=== PATIENT | male | born 2000 | race Caucasian/White ===

== ENCOUNTER 2020-05-07 16:01 | Emergency (ER) | payer BC, OTHER ==
[~2020-05-07] VITALS: Ht 182.8 cm; Wt 95.3 kg
--- NOTE | 2020-05-07 17:00 | ED Cough/URI ---
General Stated Complaint: HEADACHE,BODYACHES,FEVER,VOMITING Source: patient Exam Limitations: no limitations History of Present Illness Date Seen by Provider: May 07, 2020 Time Seen by Provider: 16:45 Initial Comments Here with report of fever, body aches and had vomiting last night. 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 He has no symptoms now as well. No vomiting today. He has been able to take fluids. Does arrive with the fever but not short of breath. His main concern is related to COVID-19 and the requirement for testing. Timing/Duration: yesterday Severity/Quality: no cough Modifying Factors: Improves With Rest Associated Symptoms: fever/chills, headache, muscle aches Allergies and Home Medications Allergies Coded Allergies: No Known Drug Allergies (Unverified , 09/04/14) Patient Home Medication List Home Medication List Reviewed: Yes Review of Systems Review of Systems Constitutional: see HPI, chills, fever EENTM: nose congestion; No throat pain Respiratory: no symptoms reported Cardiovascular: no symptoms reported Gastrointestinal: nausea, vomiting Genitourinary: no symptoms reported Musculoskeletal: joint pain, muscle pain Skin: no symptoms reported Psychiatric/Neurological: Headache; Denies Weakness Past Bwzgsel-Mmzwpi-Ymesvx Hx Past Med/Social Hx: Reviewed Nursing Past Med/Soc Hx Patient Social History Alcohol Use: Denies Use Recreational Drug Use: No Smoking Status: Never a Smoker Immunizations Up To Date Date of Influenza Vaccine: Jun 04, 2014 Past Medical History Surgeries: Yes Respiratory: No Cardiac: No Neurological: No Reproductive Disorders: No Gastrointestinal: No Musculoskeletal: No Endocrine: No Family Medical History Reviewed Nursing Family Hx Physical Exam Vital Signs - First Documented 05/07/20 16:38 Temp 38.0 Pulse 105 Resp 20 B/P (MAP) 134/82 (99) Pulse Ox 97 O2 Delivery Room Air Capillary Refill : Height: 5'9" Weight: 135lbs. oz. 61.713087tq; BMI Method:Stated General Appearance: WD/WN, no apparent distress Neck: full range of motion, supple Respiratory: lungs clear, normal breath sounds Cardiovascular: no murmur, tachycardia Gastrointestinal: non tender, soft Neurologic/Psychiatric: alert, oriented x 3 Skin: normal color, warm/dry Progress/Results/Core Measures Suspected Sepsis SIRS Temperature: Pulse: Respiratory Rate: Blood Pressure / Mean: Results/Orders Lab Results Laboratory Tests Test 05/07/20 16:47 Range/Units Coronavirus 2019 ([facility]) Positive H Negative My Orders Orders - SULLY UREÑA MD Covid 19 Inhouse Test (05/07/20 16:52) Vital Signs/I&O 05/07/20 16:38 Temp 38.0 Pulse 105 Resp 20 B/P (MAP) 134/82 (99) Pulse Ox 97 O2 Delivery Room Air Capillary Refill : Progress Note : Progress Note Seen and evaluated. Fever noted. Patient declined Tylenol or ibuprofen and states he'll do that at home. 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 Confirmatory testing will be sent if needed. Patient has findings c onsistent with COVID-[id number]: Patient is COVID positive. He was informed. DC home with return precautions. Patient verbalized understanding of instructions and agreement with plan. Departure Impression Primary Impression: COVID-19 virus infection Disposition: HOME, SELF-CARE Condition: Against Medical Advice Departure-Patient Inst. Decision time for Depature: 17:00 Referrals: NO,LOCAL PHYSICIAN (PCP/Family) Primary Care Physician Patient Instructions: Coronavirus Disease 2019 (COVID-19) (DC) Add. Discharge Instructions: Drink plenty of fluids and get plenty of rest. You will need to remain on quarantine until test results are noted. If they are negative, you will need to be isolated for 3 days after symptoms resolve. If they are positive, the health department will call you and direct quarantine timeframe. You may take ibuprofen 600 mg every 8 hours as needed for fever or pain. You may take Tylenol/acetaminophen 1000 mg every 8 hours as needed for fever.. Return for worse pain, fever, vomiting, weakness, breathing problems or other concerns as needed. SULLY UREÑA MD May 07, 2020 17:00
[2020-05-07 17:55] VITALS: BP 126/80
== END 2020-05-07 17:55 | disposition home or self-care (01) ==
LOC: EDUNIT# 16:01 → ER 16:02
DX: U07.1 COVID-19 (principal)
CPT/HCPCS: 99282; U0002; 87635

== ENCOUNTER 2020-05-10 00:21 | Emergency (ER) | payer BC ==
[~2020-05-10] VITALS: Ht 182.8 cm; Wt 97.5 kg
--- NOTE | 2020-05-10 01:19 | ED Respiratory ---
General Chief Complaint: Respiratory Problems Stated Complaint: COVID+,PAINFUL TO BREATH Source: patient History of Present Illness Date Seen by Provider: May 10, 2020 Time Seen by Provider: 01:13 Initial Comments PT ARRIVES VIA POV FROM HOME PT TESTED POSITIVE FOR COVID-19--SEEN HERE 05/07/20, HE HAD FEVER OF 101.2 THAT DAY, AND A CO-WORKER AT [facility] TESTED POSITIVE FOR COVID-19 NO LONGER RUNNING FEVER-ONLY HAD FEVER THE ONE DAY HAD NAUSEA/VOMITING ON THE FIRST DAY--THIS HAS RESOLVED, BUT STILL WITH SOME DIARRHEA--2 EPISODES TODAY. NO ABDOMINAL PAIN STILL WITH BODY ACHES AND MILD HEADACHE--IMPROVED WITH TYLENOL. LAST DOSE 3 HOURS AGO HAS HAD LOSS OF TASTE AND SMELL, BUT IS EATING AND DRINKING WELL. AND VOIDING NORMALLY HAS BEEN HAVING MILD SOME DIFFUSE CHEST/RIB PAIN WITH BREATHING, BUT NOT SHORT OF BREATH HAS HAD VERY MINIMAL COUGH NO CHRONIC MEDICAL ILLNESSES NO HISTORY OF RESPIRATORY PROBLEMS NO PCP--LIVES IN [place] Allergies and Home Medications Allergies Coded Allergies: No Known Drug Allergies (Unverified , 09/04/14) Home Medications Naproxen 500 Mg Tablet.dr, 500 MG PO BID Prescribed by: JENAE LANGFORD on 05/10/20 0156 Patient Home Medication List Home Medication List Reviewed: Yes Review of Systems Review of Systems Constitutional: see HPI, fever EENTM: see HPI Respiratory: see HPI, cough Cardiovascular: see HPI, chest pain Gastrointestinal: see HPI Genitourinary: no symptoms reported Musculoskeletal: see HPI Skin: no symptoms reported Psychiatric/Neurological: No Symptoms Reported Hematologic/Lymphatic: No Symptoms Reported Immunological/Allergic: no symptoms reported Past Yylrprt-Htpivx-Xtvszb Hx Past Med/Social Hx: Reviewed and Corrections made Patient Social History Alcohol Use: Denies Use Recreational Drug Use: No Smoking Status: Never a Smoker Recent Foreign Travel: No Contact w/Someone Who Travel: No Immunizations Up To Date Tetanus Booster (TDap): Unknown PED Vaccines UTD: Yes Date of Influenza Vaccine: Jun 04, 2014 Past Medical History Surgeries: Yes Gallbladder Respiratory: No Cardiac: No Neurological: No Reproductive Disorders: No Gastrointestinal: No Musculoskeletal: No Endocrine: No HEENT: No Cancer: No Psychosocial: No Integumentary: No Blood Disorders: No Physical Exam Vital Signs - First Documented 05/10/20 05/10/20 01:11 02:09 Temp 37.0 Pulse 74 Resp 18 B/P (MAP) 130/83 (99) Pulse Ox 99 O2 Delivery Room Air Capillary Refill : Height: 5'9" Weight: 135lbs. oz. 61.326058we; 28.00 BMI Method:Stated General Appearance: WD/WN, no apparent distress, other (DOES NOT APPEAR ILL OR TO BE IN ANY DISCOMFORT OR DISTRESS. NO COUGH OR DYSPNEA AT ANY TIME) HEENT: PERRL/EOMI, normal ENT inspection, TMs normal, pharynx normal Neck: non-tender, full range of motion, supple, normal inspection Respiratory: chest non-tender, normal breath sounds, no respiratory distress, no accessory muscle use Cardiovascular: normal peripheral pulses, regular rate, rhythm, no edema, no JVD, no murmur Gastrointestinal: non tender, soft Extremities: normal inspection, normal capillary refill Neurologic/Psychiatric: metal sprayer II-XII nml as tested, no motor/sensory deficits, alert, normal mood/affect, oriented x 3 Skin: normal color, warm/dry; No rash Progress/Results/Core Measures Suspected Sepsis SIRS Temperature: Pulse: Respiratory Rate: Blood Pressure / Mean: Results/Orders My Orders Orders - JENAE LANGFORD DO Ed Iv/Invasive Line Start (05/10/20 01:13) Monitor-Rhythm Ecg Trace Only (05/10/20 01:13) Chest 1 View, Ap/Pa Only (05/10/20 01:13) Rx-Naproxen (Rx-Naprosyn) (05/10/20 01:57) Vital Signs/I&O 05/10/20 05/10/20 01:11 02:09 Temp 37.0 37.0 Pulse 74 70 Resp 18 18 B/P (MAP) 130/83 (99) 128/81 (99) Pulse Ox 99 O2 Delivery Room Air Room Air Capillary Refill : Progress Note : Progress Note PLACED ISOLATION ROOM, PPE WORN AT ALL TIMES Diagnostic Imaging Comments CXR--NO ACUTE PROCESS, PENDING RADIOLOGIST REVIEW Reviewed: Reviewed by Me Departure Impression Primary Impression: COVID-19 virus infection Disposition: HOME, SELF-CARE Condition: Stable Departure-Patient Inst. Referrals: NO,LOCAL PHYSICIAN (PCP/Family) Primary Care Physician Patient Instructions: Coronavirus Disease 2019 (COVID-19) (DC), Preventing the Spread of an Infectious Disease Add. Discharge Instructions: CONTINUE TYLENOL 1 GRAM 4 TIMES A DAY NEEDED FOR PAIN OR FEVER LOTS OF CLEAR LIQUIDS RETURN TO ER IF SYMPTOMS WORSEN CONTINUE QUARANTINE UNTIL CLEARED BY HEALTH DEPARTMENT OR DR All discharge instructions reviewed with patient and/or family. Voiced understanding. Scripts Naproxen (Naproxen) 500 Mg Tablet. 500 MG PO BID, #20 TAB Prov: JENAE LANGFORD DO 05/10/20 JENAE LANGFORD DO May 10, 2020 01:19
[2020-05-10] MEDS ORDERED: NAPR500T8 PO (01:56)
[2020-05-10] MEDS ORDERED: RX-NAPROXEN (NAPROSYN) 250 MG TAB PPK#4 PO STA (01:57)
[2020-05-10 02:09] VITALS: BP 128/81
--- NOTE | 2020-05-10 06:45 | Diagnostic Imaging Report ---
INDICATION: COVID positive. Shortness of breath and chest pain. FINDINGS: Portable chest. The lungs are well-aerated and clear. Heart is not enlarged. No pulmonary edema. No hilar adenopathy. No pneumothorax or pleural effusion. IMPRESSION: Negative portable chest. Report was faxed to Regan Ortiz/RN Infection Control by eva at 6:45am. Dictated by: Dictated on workstation # [id number]
== END 2020-05-10 02:09 | disposition home or self-care (01) ==
LOC: EDUNIT# 00:21 → ER 00:24
DX: U07.1 COVID-19 (principal)
CPT/HCPCS: 71045